=== PATIENT | male | born 1965 | race Caucasian/White ===

== ENCOUNTER 2018-09-09 17:25 | Emergency (ER) | payer SELFPAY | END 2018-09-09 18:05 | disposition left against medical advice (07) | LOC: E/R 17:25 | DX: Z53.21 Procedure and treatment not carried out due to patient leaving prior to being seen by health care provider (principal) ==

== ENCOUNTER 2018-09-10 13:42 | Emergency (ER) | payer OTHER | END 2018-09-10 14:03 | disposition home or self-care (01) | LOC: E/R 14:03 | DX: Z76.0 Encounter for issue of repeat prescription (principal); Z87.891 Personal history of nicotine dependence | CPT/HCPCS: 99281; Z7502 ==